=== PATIENT | female | born 1975 | race Caucasian/White ===

== ENCOUNTER 2016-10-03 19:00 | Inpatient (IN) | payer BC ==
[~2016-10-03] VITALS: Ht 157.5 cm; Wt 77.2 kg
--- NOTE | ~2016-10-03 | HP ---
PATIENT'S NAME: BIJAN GOLD [facility] AGE: 41 Y [address] ROOM: [address] [place] [id number] [place] [facility] [place] ADMIT DATE: 10/03/2016 History & Physical DISCHARGE DATE: 10/09/2016 FAMILY PHYSICIAN: Kristin Correa MD ATTENDING PHYSICIAN: Raúl Peñaloza DATE OF SERVICE: CHIEF COMPLAINT: Uncontrolled postsurgical pain. HISTORY OF PRESENT ILLNESS: The patient is a 41-year-old female, who underwent an outpatient repair of an incisional hernia earlier today. She was initially discharged, doing fine. Unfortunately, she had completely inadequate pain control and was unable to move, despite oral pain medications. She otherwise had no issues. PAST MEDICAL HISTORY: Positive for asthma as well as chronic back problems. HOME MEDICATIONS: Include: 1. Flexeril. 2. Colace. 3. Estrace. 4. Gabapentin. 5. Levothyroxine. 6. Claritin. 7. Omeprazole. 8. MiraLax. ALLERGIES: INCLUDE MORPHINE. PHYSICAL EXAMINATION: VITAL SIGNS: The patient's blood pressure is 153/89, pulse 111, respirations 16, saturations 94% on room air, temperature 97.9. GENERAL: The patient is a well-nourished female, but in obvious pain. She is alert and oriented. HEENT: Normocephalic, atraumatic. Pupils are equal. There is no scleral icterus. External ears, nose, and eyelids are unremarkable. LUNGS: Breathing is nonlabored. Lungs are clear to auscultation. There is no rales or wheezing. HEART: Regular, but slightly tachycardic. ABDOMEN: Soft. She has an upper midline dressing in place with no drainage. PATIENT'S NAME: BIJAN GOLD [facility] AGE: 41 Y [address] ROOM: [facility] [place], [place] [address] LOC[place]: [facility] [place] ADMIT DATE: 10/03/2016 History & Physical DISCHARGE DATE: 10/09/2016 FAMILY PHYSICIAN: Kristin Correa MD ATTENDING PHYSICIAN: Raúl Peñaloza She has good bowel sounds. There is no rebound or guarding. EXTREMITIES: No peripheral edema. No obvious deformities. ASSESSMENT: A 41-year-old female with inadequate pain control following her recent incisional hernia repair. PLAN: We will start her on a [employer] and some muscle relaxers to try to get this under better control and hopefully gradually switch her back to oral pain medicines if things improve. Right now, I see no signs of complications other than the severe pain. MD ALICIA POWERS/arlene /[id number] D: [id number] T: [id number] HISTORY & PHYSICAL
--- NOTE | ~2016-10-03 | DS ---
PATIENT'S NAME: STEPHANIE GOLD [facility] AGE: 41 Y [address] ROOM: [address] [place] [address] [place] [facility] [place] DATE: 10/03/2016 Discharge Summary DISCHARGE DATE: 10/09/2016 FAMILY PHYSICIAN: Kristin Correa MD ATTENDING PHYSICIAN: Raúl Peñaloza DIAGNOSES: 1. Acute postoperative pain, status post incisional hernia repair. 2. Pneumonia with streaky areas of dense consolidation in posterior lungs bilaterally. SUMMARY: Stephanie Kingston is a 41-year-old female, who underwent an incisional hernia repair on October 03, 2016, at [facility] with Dr. Peñaloza. The procedure was a little more involved than initially expected with a larger piece of mesh utilized. The patient subsequently had inadequate pain control later that day and was admitted to [facility] for postoperative pain control. The patient was initially placed on a Dilaudid [employer]. Oxford was also added for pain control. Lovenox was ordered for DVT prophylaxis. Activity was allowed as tolerated. Diet was allowed as tolerated. The patient did have severe nausea and required Zofran on a regular basis. On postop day #1, vital signs were stable and white blood cell count was 10.3. On postop day #2, the patient was requiring 2 L of oxygen by nasal cannula. Incentive spirometer was encouraged. Her [employer] was discontinued. Celebrex was added for pain control. On postop day #3, pain control was improving and nausea was better. She was still requiring oxygen. A CT of the chest for PE protocol was ordered, which was negative for pulmonary embolus, but did show dense consolidation of the posterior lungs bilaterally with more hazy parenchymal opacity at the anterior right upper lung. Zosyn was initiated for antibiotic. The patient continued on oxygen the next couple of days. On October 08, antibiotic was switched to Augmentin 875 mg p.o. b.i.d. On October 09, the patient was awake and stated that she was feeling much better, she wanted to go home. Her pain was under good control. She was still using Zofran for nausea. She was coughing up some phlegm. She was on room air. Vital signs were stable. Incision was intact. Tentative arrangements have been made for the patient to discharge home. DISCHARGE INSTRUCTIONS: Include no restrictions on diet. No lifting greater than 20 pounds for 6 weeks. FOLLOWUP: We will set up a followup appointment with Dr. Peñaloza in 1-2 weeks. DISCHARGE MEDICATIONS: Prescription for Augmentin 875 mg p.o. twice daily with meals was given along with prescription for Celebrex 200 mg p.o. q.h.s. dispensing #10 with no refills. She already received a prescription for Oxford from her discharge at [facility]. Otherwise, she will continue PATIENT'S NAME: STEPHANIE GOLD [facility] AGE: 41 Y [address] ROOM: [place] [address] [place]: [facility] [place]MIT DATE: 10/03/2016 Discharge Summary DISCHARGE DATE: 10/09/2016 FAMILY PHYSICIAN: Kristin Correa MD ATTENDING PHYSICIAN: Raúl Peñaloza with her usual home medications. A prescription for Zofran was also given, 4 mg 1 p.o. q.4 hours p.r.n. nausea, dispensing #20 with no refills. For specifics on day-to-day care, please refer to the hospital chart. ANA MARIA NOE PA-C FOR MD CRUZ POWERS/arlene /[id number] d: 10/09/16 2306 t: 10/16/16 1939, DISCHARGE SUMMARY
[2016-10-03] MEDS ORDERED: CLARITIN10 MG PO (23:44)
[2016-10-03] MEDS ORDERED: OMEPRAZOLE40 MG PO (23:45)
[2016-10-03] MEDS ORDERED: NEURONTIN300 MG PO (23:45)
[2016-10-03] MEDS ORDERED: ESTRACE(ESTRADIO1 MG PO (23:46)
[2016-10-03] MEDS ORDERED: FLEXERIL10 MG PO (23:46)
[2016-10-03] MEDS ORDERED: COLACE100 MG PO (23:47)
[2016-10-03] MEDS ORDERED: LEVOTHROID (S137 MCG PO (23:47)
[2016-10-03] MEDS ORDERED: MIRALAX17 GM PO (23:49)
[2016-10-04 05:02] LABS: BASOPHIL # 0.1 K/uL (0.0-0.2); BASOPHIL % 0.5 %; EOSINOPHIL # 0.3 K/uL (0.0-0.5); EOSINOPHIL % 3.3 %; HEMATOCRIT 39.5 % (33.0-46.0); HEMOGLOBIN 12.9 g/dL (10.0-15.0); IMMATURE GRANULOCYTE % 0.4 %; LYMPHOCYTE # 2.5 K/uL (0.8-4.0); LYMPHOCYTE % 24.6 %; MCH 30.3 pg (27.0-34.0); MCHC 32.7 gm/dL (32.0-36.5); MCV 92.7 fl (83.0-98.0); MONOCYTE # 0.5 K/uL (0.0-1.0); MONOCYTE % 5.1 %; MPV 10.8 fl (9.4-12.4); NEUTROPHIL # (ANC) 6.8 K/uL (1.8-7.8); NEUTROPHIL % 66.1 %; NRBC % 0 /100WBC (0-0.00); PLATELET COUNT 232 K/uL (150-450); RBC 4.26 M/uL (3.50-5.50); WBC 10.3 K/uL (4.0-11.0)
[2016-10-04 05:16] LABS: ANION GAP 10.6 (10.0-19.0); BLOOD UREA NITROGEN 14 mg/dL (6-24); CALCIUM 8.6 mg/dL (8.5-10.5); CHLORIDE 108 mMol/L (96-110); CO2 26 mMol/L (22-32); CREATININE 0.7 mg/dL (0.5-1.1); POTASSIUM 3.6 mMol/L (3.7-5.1); SODIUM 141 mMol/L (135-145)
[2016-10-04] MEDS ORDERED: LOPRESSOR25 MG PO (08:49)
[2016-10-06] MEDS ORDERED: MILK OF MA400 MG/5 M PO (10:32)
[2016-10-06] MEDS ORDERED: VALIUM5 MG PO (10:35)
[2016-10-06] MEDS ORDERED: ZOFRAN4 M1 PO (10:35)
[2016-10-06] MEDS ORDERED: NORCO 5-325 TA1 EACH PO (10:38)
[2016-10-06 13:07] LABS: BASOPHIL % 0.3 %; EOSINOPHIL # 0.3 K/uL (0.0-0.5); EOSINOPHIL % 2.8 %; HEMATOCRIT 38.8 % (33.0-46.0); HEMOGLOBIN 12.7 g/dL (10.0-15.0); IMMATURE GRANULOCYTE # 0.1 K/uL (0.0-0.3); IMMATURE GRANULOCYTE % 0.4 %; LYMPHOCYTE # 2.5 K/uL (0.8-4.0); LYMPHOCYTE % 21.4 %; MCH 30.4 pg (27.0-34.0); MCHC 32.7 gm/dL (32.0-36.5); MCV 92.8 fl (83.0-98.0); MONOCYTE # 0.8 K/uL (0.0-1.0); MONOCYTE % 7.1 %; MPV 10.9 fl (9.4-12.4); NEUTROPHIL # (ANC) 7.9 K/uL (1.8-7.8); NRBC % 0 /100WBC (0-0.00); PLATELET COUNT 197 K/uL (150-450); RBC 4.18 M/uL (3.50-5.50); WBC 11.6 K/uL (4.0-11.0)
[2016-10-06 13:22] LABS: ALBUMIN 2.9 gm/dL (3.5-5.0); ALK PHOS 162 IU/L (33-138); ALT 89 IU/L (12-78); ANION GAP 10.9 (10.0-19.0); AST 69 IU/L (10-40); BLOOD UREA NITROGEN 8 mg/dL (6-24); CALCIUM 8.3 mg/dL (8.5-10.5); CHLORIDE 103 mMol/L (96-110); CO2 28 mMol/L (22-32); CREATININE 0.7 mg/dL (0.5-1.1); POTASSIUM 3.9 mMol/L (3.7-5.1); SODIUM 138 mMol/L (135-145); TOTAL BILIRUBIN 0.7 mg/dL (0.0-1.5)
[2016-10-08 05:21] LABS: BASOPHIL % 0.4 %; EOSINOPHIL # 0.5 K/uL (0.0-0.5); EOSINOPHIL % 5.5 %; HEMATOCRIT 35.3 % (33.0-46.0); HEMOGLOBIN 11.6 g/dL (10.0-15.0); IMMATURE GRANULOCYTE # 0.1 K/uL (0.0-0.3); IMMATURE GRANULOCYTE % 1.6 %; LYMPHOCYTE # 2.4 K/uL (0.8-4.0); LYMPHOCYTE % 28.4 %; MCH 30.2 pg (27.0-34.0); MCHC 32.9 gm/dL (32.0-36.5); MCV 91.9 fl (83.0-98.0); MONOCYTE # 0.5 K/uL (0.0-1.0); MONOCYTE % 6.3 %; MPV 10.6 fl (9.4-12.4); NEUTROPHIL # (ANC) 4.9 K/uL (1.8-7.8); NEUTROPHIL % 57.8 %; NRBC % 0 /100WBC (0-0.00); RBC 3.84 M/uL (3.50-5.50); RDW-CV 13.2 % (11.9-14.6); WBC 8.6 K/uL (4.0-11.0)
[2016-10-08 05:28] LABS: PLATELET COUNT 255 K/uL (150-450)
[2016-10-08 05:51] LABS: ALBUMIN 2.6 gm/dL (3.5-5.0); ALK PHOS 152 IU/L (33-138); ALT 54 IU/L (12-78); TOTAL BILIRUBIN 0.4 mg/dL (0.0-1.5); TOTAL PROTEIN 6.9 g/dL (6.0-8.4)
[2016-10-08 05:52] LABS: AST 42 IU/L (10-40)
[2016-10-09] MEDS ORDERED: CELEBREX200 MG PO (14:52)
[2016-10-09] MEDS ORDERED: AUGMENTIN 875-1 EACH PO (14:53)
== END 2016-10-09 17:05 | disposition disaster alternative care site (69) | DRG 947 ==
LOC: GMSU 20:36
PROVIDERS: Surgery; ADMIT Surgery
DX: G89.18 Other acute postprocedural pain (principal); J18.9 Pneumonia, unspecified organism; K59.00 Constipation, unspecified; R09.02 Hypoxemia; J45.909 Unspecified asthma, uncomplicated; R11.0 Nausea
CPT/HCPCS: J1170; J1650; J1885; J2405; J2543; J7030; J7050; Q0162; Q9967